=== PATIENT | female | born 1940 | race Caucasian/White ===

== ENCOUNTER 2016-05-09 15:39 | Emergency (ER) | payer OTHER ==
--- NOTE | 2016-05-09 15:54 | CPEKG ---
Heart Rate: 86 RR Interval: 698 P-R Interval: 152 QRSD Interval: 82 QT Interval: 372 QTC Interval: 445 P [place]: 49 QRS [place]: -10 T Wave [place]: 27 EKG Severity - NORMAL ECG - EKG Impression: SINUS RHYTHM Electronically Signed By: Chavo Cool 09-May-2016 20:42:19
[2016-05-09] MEDS ORDERED: NS 1,000 ML IV ONE (15:55)
[2016-05-09] MEDS ORDERED: MAALOX/LIDO/HYOSC GI COCKTAIL 55 ML BOTTLE PO ONE (15:57)
[2016-05-09 16:08] LABS: % IMMATURE GRANULYOCYTES 0.3 % (0.0-1.1); ABSOLUTE IMMATURE GRANULOCYTES 0.02 10^3/uL (0.00-0.10); ADD DIFF? NO; ADD MORPH? NO; ADD SCAN? NO; ATYPICAL LYMPHOCYTE FLAG 0 (0-99); FRAGMENT RBC FLAG 0 (0-99); HEMOGLOBIN 10.9 g/dL (12.6-16.3); LEFT SHIFT FLG 0 (0-99); LIPEMIA HEMOLYSIS FLAG 80 (0-99); MEAN CELL HEMOGLOBIN 28.5 pg (27.9-34.1); MEAN CELL VOLUME 86.4 fL (81.5-99.8); MEAN PLATELET VOLUME 10.2 fL (8.7-11.7); PLATELET CLUMPS FLAG 0 (0-99); PLATELET COUNT 244 10^3/uL (150-400); RED BLOOD CELL COUNT 3.82 10^6/uL (4.18-5.33); RED CELL DISTRIBUTION WIDTH 12.6 % (11.5-15.2)
--- NOTE | 2016-05-09 16:09 | EDPHY ---
H & P Stated Complaint: EPIGASTRIC PAIN X 1 WK Source: Patient, Family Exam Limitations: No limitations - Personal History Current Tetanus/Diphtheria Vaccine: Yes Current Tetanus Diphtheria and Acellular Pertussis (TDAP): Unsure Tetanus Vaccine Date: 2010 - Medical/Surgical History Hx Asthma: No Hx Chronic Respiratory Disease: No Hx Diabetes: Yes Hx Cardiac Disease: No Hx Renal Disease: No Hx Cirrhosis: No Hx Alcoholism: No Hx HIV/AIDS: No Hx Splenectomy or Spleen Trauma: No Other PMH: DM,HTN,CHOLESTEROL,HYPOTHYROID - Social History Smoking Status: Never smoked HPI/ROS: CHIEF COMPLAINT: Epigastric and left upper quadrant abdominal pain HISTORY OF PRESENT ILLNESS: complains of nearly 1 month of epigastric and left upper quadrant abdominal pain that has significantly worsened over the past 2 days. Mild to moderate pain that become after eating. No fever or chills. There is nausea but no vomiting. No constipation or diarrhea. No chest pain. No pain with exertion. No diaphoresis. No radiating pain. Significantly worsen postprandial. Improves when NPO at rest. Has a history of a right renal mass with a nephrectomy scheduled for June 09. No other abdominal diagnoses. Cholecystectomy remotely. No other associated complaints or modifying factors. PREVIOUS ABDOMINAL SURGERIES/DIAGNOSES: cholecystectomy remotely, right renal mass with scheduled nephrectomy NPO: Lunch today REVIEW OF SYSTEMS: Ten systems reviewed and are negative unless otherwise noted in the HPI EXAMINATION: General Appearance: Alert, no distress Head: normocephalic, atraumatic Eyes: Pupils equal and round, no conjunctival pallor or injection ENT, Mouth: Mucous membranes moist . Uvula midline. Neck: Normal inspection, supple, non-tender Respiratory: Lungs are clear to auscultation . No wheezing, rhonchi or crackles. Cardiovascular: Regular rate and rhythm . No murmur Gastrointestinal: Abdomen is soft with moderate epigastric and left upper quadrant tenderness. No CVA tenderness. No tympany. No rigidity. Non-acute abdomen. Neurological: A&O, nonfocal, normal gait Skin: Warm and dry, no rash Extremities: Nontender, no pedal edema Psychiatric: Mood and affect normal DIFFERENTIAL DIAGNOSES: Including but not limited to Gastritis, pancreatitis, enteritis, colitis, peptic ulcer MDM: 4:00 p.m. epigastric and left upper quadrant abdominal pain. The patient has reproducible pain on examination. She has no chest pain. The pain has been present for several weeks and has worsened over the past 2 days. Status post cholecystectomy. Right renal mass with scheduled nephrectomy on June 09. She does have a CT scan of the chest ordered next week to rule out any metastases. She has no chest pain , hemoptysis or shortness of breath. No acute distress and resting comfortably at this time. 4:45 p.m. I have discussed the case with Dr. Cool. At this time he will assume care of the patient. Please see his note for final disposition. CT scans have been ordered but not yet performed. ED EKG: Reviewed by Dr. Cool NSR SUPERVISION: Patient was evaluated in conjunction with the supervising physician. Please see their note for details. (James Campbell) Constitutional: Initial Vital Signs Temperature (C) 36.9 C 05/09/16 15:45 Heart Rate 98 05/09/16 15:45 Respiratory Rate 18 05/09/16 15:45 Blood Pressure 147/101 H 05/09/16 15:45 O2 Sat (%) 97 05/09/16 15:45 O2 Delivery Mode Room Air Allergies/Adverse Reactions: meloxicam [From Mobic] Allergy (Verified 10/06/14 07:26) sitagliptin phosphate [From Januvia] Allergy (Verified 10/06/14 07:21) Home Medications: Medication Instructions Recorded Glimepiride Unk Dose 05/09/16 Lisinopril Unk Dose 05/09/16 Metformin Unk Dose 05/09/16 Pantoprazole Sodium [Protonix 40mg 40 mg PO DAILY #30 tab 05/09/16 (*)] Synthroid Unk Dose 05/09/16 Medical Decision Making - Diagnostics Imaging: CT abdomen pelvis with IV contrast: No explanation for left upper quadrant pain noted, chronic renal cell carcinoma noted, CT chest: Negative for acute abnormality. Study results reported to me by Dr. Je Lockwood. (Chavo Cool) Other Provider: I evaluated and participated in the management of the patient. I also evaluated the patient independently. My co-signature indicates that I have reviewed this chart and I agree with the findings and plan of care as documented. My personal H&P findings include: The patient presents to the ED with a nearly 1 month history of chronic worsening left upper quadrant pain. The patient has been using an acid is without improvement. She has had no fever cough. The patient was seen by Gastroenterology several months ago and started on antacid without improvement. The patient has had upper endoscopy approximately 1 year ago which she is uncertain of the results of. PHYSICAL EXAM: General Appearance: Alert, no distress Eyes: Pupils equal and round no pallor or injection ENT, Mouth: Mucous membranes moist Respiratory: There are no retractions, lungs are clear to auscultation Cardiovascular: Regular rate and rhythm Gastrointestinal: Minimal tenderness to palpation in the upper quadrant Neurological: A&O, normal motor function, normal sensory exam, normal cranial nerves Skin: Warm and dry, no rashes Musculoskeletal: Neck is supple nontender Extremities: symmetrical, full range of motion At this point time the etiology of the patient's chronic upper abdominal pain is uncertain. She has nothing to suggest an acute abdomen. Her CT scan laboratory studies are reassuring. The patient will be started on Protonix and asked to follow up with her regular senior construction project manager as scheduled. She will be discharged home with customary aftercare instructions. (Chavo Cool) - Data Points Laboratory Results: Laboratory Results 05/09/16 15:53 05/09/16 15:53 05/09/16 05/09/16 17:55 15:53 WBC 7.86 10^3/uL (3.80-9.50) RBC 3.82 L 10^6/uL (4.18-5.33) Hgb 10.9 L g/dL (12.6-16.3) Hct 33.0 L % (38.0-47.0) MCV 86.4 fL (81.5-99.8) MCH 28.5 pg (27.9-34.1) MCHC 33.0 g/dL (32.4-36.7) RDW 12.6 % (11.5-15.2) Plt Count 244 10^3/uL (150-400) MPV 10.2 fL (8.7-11.7) Neut % (Auto) 68.8 % (39.3-74.2) Lymph % (Auto) 22.9 % (15.0-45.0) Gove % (Auto) 5.7 % (4.5-13.0) Eos % (Auto) 1.9 % (0.6-7.6) Baso % (Auto) 0.4 % (0.3-1.7) Nucleat RBC Rel Count 0.0 % (0.0-0.2) Absolute Neuts (auto) 5.41 10^3/uL (1.70-6.50) Absolute Lymphs (auto) 1.80 10^3/uL (1.00-3.00) Absolute Monos (auto) 0.45 10^3/uL (0.30-0.80) Absolute Eos (auto) 0.15 10^3/uL (0.03-0.40) Absolute Basos (auto) 0.03 10^3/uL (0.02-0.10) Absolute Nucleated RBC 0.00 10^3/uL (0-0.01) Immature Gran % 0.3 % (0.0-1.1) Immature Gran # 0.02 10^3/uL (0.00-0.10) PT 12.9 SEC (12.0-15.0) INR 0.98 (0.83-1.16) APTT 28.3 SEC (23.0-38.0) Sodium 140 mEq/L (134-144) Potassium 4.4 mEq/L (3.5-5.2) Chloride 108 mEq/L (97-110) Carbon Dioxide 22 mEq/l (22-31) Anion Gap 10 mEq/L (8-16) BUN 21 mg/dL (7-23) Creatinine 0.9 mg/dL (0.6-1.0) Estimated GFR > 60 Glucose 101 H mg/dL (70-100) Calcium 9.6 mg/dL (8.5-10.4) Total Bilirubin 0.5 mg/dL (0.1-1.4) Conjugated Bilirubin 0.2 mg/dL (0.0-0.5) Unconjugated Bilirubin 0.3 mg/dL (0.0-1.1) AST 30 IU/L (14-46) ALT 45 IU/L (9-52) Alkaline Phosphatase 140 H IU/L (38-126) Troponin I < 0.012 ng/mL (0-0.034) Total Protein 7.0 g/dL (6.3-8.2) Albumin 4.0 g/dL (3.5-5.0) Lipase 299.0 IU/L (23-300) Urine Color PALE YELLOW Urine Appearance CLEAR Urine pH 5.0 (5.0-7.5) Ur Specific [place] 1.021 (1.002-1.030) Urine Protein NEGATIVE (NEGATIVE) Urine Ketones NEGATIVE (NEGATIVE) Urine Blood NEGATIVE (NEGATIVE) Urine Nitrate NEGATIVE (NEGATIVE) Urine Bilirubin NEGATIVE (NEGATIVE) Urine Urobilinogen NEGATIVE EU (0.2-1.0) Ur Leukocyte Esterase NEGATIVE (NEGATIVE) Ur Culture Indicated? NOT INDICATED (NI) Urine Glucose NEGATIVE (NEGATIVE) Medications Given: Discontinued Medications Sodium Chloride (Ns) 1,000 mls @ 0 mls/hr IV ONCE ONE PRN Reason: Wide Open Stop: 05/09/16 15:56 Last Admin: 05/09/16 16:00 Dose: 1,000 mls Miscellaneous Medication (Gi Cocktail) 55 ml PO EDNOW ONE Stop: 05/09/16 15:58 Last Admin: 05/09/16 16:00 Dose: 55 ml Departure - Departure Disposition: Home, Routine, Self-Care Clinical Impression: Renal mass Abdominal pain Qualifiers: Abdominal location: upper abdomen, unspecified Qualifier Code: (R10.10) Upper abdominal pain, unspecified Condition: Good Instructions: Acute Abdominal Pain (ED) Additional Instructions: 1. Sometimes we are unable to diagnose an obvious cause of abdominal pain in the Emergency Department. Based upon our evaluation today, we see no obvious explanation for your pain. Because more serious conditions can be difficult to diagnose early in the course of their presentation, we ask that you return to the Emergency Department in 8-12 hours for a recheck if you are still having pain. This is necessary to exclude the development of a more serious condition such as appendicitis or other intra-abdominal emergency. In the event your pain markedly increases before that time or you develop intractable vomiting or fever return to the Emergency Department immediately. 2. Please follow-up with your senior construction project manager as scheduled. 3. Begin medications as prescribed in the emergency department. Referrals: Alicja Guzman MD [Primary Care Provider] - As per Instructions
[2016-05-09 16:17] LABS: APTT 28.3 SEC (23.0-38.0); INR 0.98 (0.83-1.16); PROTIME(PATIENT) 12.9 SEC (12.0-15.0)
[2016-05-09 16:21] LABS: ALANINE AMINOTRANSFERASE 45 IU/L (9-52); ALKALINE PHOSPHATASE 140 IU/L (38-126); ANION GAP 10 mEq/L (8-16); ASPARTATE AMINOTRANSFERASE 30 IU/L (14-46); BILIRUBIN,TOTAL 0.5 mg/dL (0.1-1.4); BILIRUBIN-CONJUGATED 0.2 mg/dL (0.0-0.5); BILIRUBIN-UNCONJUGATED 0.3 mg/dL (0.0-1.1); CALCIUM 9.6 mg/dL (8.5-10.4); CARBON DIOXIDE 22 mEq/l (22-31); CHLORIDE 108 mEq/L (97-110); CREATININE 0.9 mg/dL (0.6-1.0); GLOMERULAR FILTRATION RATE > 60; GLUCOSE 101 mg/dL (70-100); POTASSIUM 4.4 mEq/L (3.5-5.2); SODIUM 140 mEq/L (134-144)
[2016-05-09 16:31] LABS: TROPONIN I < 0.012 ng/mL (0-0.034)
[2016-05-09] MEDS ORDERED: IOPAMIDOL (ISOVUE-300) 100 ML BTL IV ONE (16:38)
--- NOTE | 2016-05-09 16:50 | DX ---
Portable AP Upright Chest History: Chest and epigastric pain. Comparison to the prior PA and lateral chest December 13, 2013. Findings: The heart and mediastinum are normal. Pulmonary vascularity is normal. The lungs are clear. Mild peribronchial thickening is noted. There is no pleural fluid. Stable minimal elevation of the r ight diaphragm is noted. Degenerative changes are seen in the spine. A pneumothorax is not identified . Impression: Chest negative for acute abnormality. Query airways disease.
[2016-05-09 18:19] LABS: COLOR PALE YELLOW; LEUKOCYTE ESTERASE,URINE NEGATIVE (NEGATIVE); NITRITE,URINE NEGATIVE (NEGATIVE)
[2016-05-09 18:54] VITALS: BP 146/68; PULSE 79; RESP 16; TEMP 98.1; O2SAT 97
--- NOTE | 2016-05-09 18:54 | CT ---
Contrast CT Scan of the Chest, Abdomen, and Pelvis Clinical History: 75-year-old female with a known right renal mass anticipating a nephrectomy on 2016, who presents to the ED complaining of epigastric and left upper quadrant abdominal pain, a t times postprandial. Her abdominal symptoms have been ongoing for one month, although significantly worsened over the last two days. The patient was also scheduled for CT imaging of the chest next we ek to rule out metastatic disease. Technique: Oral contrast was not administered. The patient received 90 mL of IV Isovue-300, without complication, and a multidetector helical CT scan was obtained during the arterial phase, from the b ase of the neck inferiorly to the upper abdomen, and then during the portal venous phase from the lev el of the lung bases inferiorly through the proximal femora. Images are reformatted at 5.00 and 1.25 mm increments, and are reviewed at a variety of window and level settings. Parasagittal and paracor onal reconstructed images are reviewed on the workstation. A dose reduction protocol was used. Comparison Studies: Chest radiography from earlier this afternoon, and dated December 13, 2013. No cross-sectional imaging studies are available currently. Findings CONTRAST-ENHANCED CT SCAN OF THE CHEST: There is a 3-mm noncalcified pulmonary nodule in the right l ateral apex on series #3, image #39. This is a likely benign finding, and follow-up CT imaging in 12 months is suggested. There is no focal alveolar consolidation, atelectasis, or pleural effusion. T he thyroid gland is diminutive. The supraclavicular fossa is unremarkable. There is no axillary or intrathoracic adenopathy. The cardiac chambers, pericardium, thoracic aortic contour, and the centra l pulmonary artery segments are normal. The osseous structures are age-appropriate, with no osteolyt ic lesion. There are some degenerative features of the spine. The subcutaneous tissues are normal. The breasts are adipose-replaced, with an anticipated "type A" density. Impression: Likely benign 3-mm noncalcified pulmonary nodule in the right apex. Repeat CT imaging i n 12 months is recommended to assure stability. CONTRAST-ENHANCED CT SCAN OF THE ABDOMEN: There is mild global diminished attenuation of the liver, consistent with steatosis. There is no focal hepatic mass. There is a "catwalk" appearance to the l eft hepatic lobe, a normal variant. The gallbladder is surgically absent. The pancreatic contour is normal. The adrenal glands and left kidney are normal. There is a heterogeneous-appearing exophyti c mass extending from the kgz-jw-dtlaw pole portions of the right kidney, maximally measuring 7.0 x 6 .3 cm (transverse diameter) x 7.1 cm (cephalocaudal diameter), consistent with a renal cell carcinoma . A few scattered calcifications are present. There is no obstructive uropathy. The renal veins re main patent. The splenic vein, superior mesenteric vein, and the main portal vein are also patent. The abdominal aorta and the IVC are normal in caliber. There is a 7 mm benign-appearing aortocaval l ymph node, with a tiny fatty hilum, on series 4, image 327, and a 6 mm lymph node seen on series 4, i mage 368. The stomach, small bowel, and the large bowel are not distended. There is some intralumin al fluid seen within small and large bowel. There is no ascites or pneumoperitoneum. Moderate subcu taneous and centripetal obesity is present. There is a tiny fat-containing periumbilical hernia. CONTRAST-ENHANCED CT SCAN OF THE PELVIS: The urinary bladder is moderately distended. The uterus is seen to the right of midline. There is no adnexal mass, nor is there any free fluid or adenopathy. A few scattered sigmoid colon diverticula are seen, without active diverticulitis. There are some d egenerative changes of the lower lumbar spine, with trace L4-L5 anterolisthesis and a Schmorl's node seen along the superior cortical endplate of L5. There is no osteolytic lesion. Facet hypertrophy a t the lumbosacral junction is observed. There is some degenerative change of the SI joints. Impression: 1. Mild generalized hepatic steatosis. 2. Status post cholecystectomy, with no abnormal bowel dilatation. 3. There is a heterogeneous irregularly-marginated 6.3 x 7.0 x 7.1 cm exophytic mass involving the m id-to-lower pole of the right kidney, consistent with a renal cell carcinoma. 4. There is some nonspecific intraluminal fluid seen within the stomach, small bowel, and large rochelle l, with no mechanical obstruction or pneumoperitoneum. 5. Sigmoid colon diverticulosis, without active inflammation. Results were discussed with Dr. Chavo Cool. A test result has been communicated to a licensed care provider and documented in the [employer] Critical Result system on 05/09/2016 18:18, Message ID [id number].
== END 2016-05-09 18:57 | disposition home or self-care (01) ==
DX: N28.89 Other specified disorders of kidney and ureter (principal); E11.9 Type 2 diabetes mellitus without complications; I10 Essential (primary) hypertension; R10.10 Upper abdominal pain, unspecified; Z90.49 Acquired absence of other specified parts of digestive tract
CPT/HCPCS: 71010; 71260; 74177; 93005; 96360; 99285; Q9967

== ENCOUNTER 2016-06-09 05:49 | Inpatient (IN) | payer OTHER ==
[2016-06-09] MEDS ORDERED: cefOXitin SODIUM 2 GM in D5W 100 ML IV ONE (06:00)
[2016-06-09] MEDS ORDERED: LIDOCAINE 1% 2 ML INJ ONE (06:13)
[2016-06-09] MEDS ORDERED: PROPOFOL/EMULSION 500 MG/50 ML BOTTLE IV ONE (06:57)
[2016-06-09] MEDS ORDERED: fentaNYL 250 MCG/5 ML INJ ONE (06:57)
[2016-06-09] MEDS ORDERED: SKIN ADHESIVE (DERMABOND) 1 EACH TP ONE (07:05)
[2016-06-09] MEDS ORDERED: SURGIFLO MATRIX KIT WITH THROMBIN TP ONE (07:05)
[2016-06-09] MEDS ORDERED: BUPIVACAINE/EPI 0.5% 30 ML SDV ONE ×2 (07:05→07:07)
[2016-06-09] MEDS ORDERED: FAMOTIDINE 20 MG/2 ML SDV ONE (07:12)
[2016-06-09] MEDS ORDERED: MIDAZOLAM 2 MG/2 ML VIAL ONE (07:17)
[2016-06-09] MEDS ORDERED: ONDANSETRON 4 MG/2 ML VIAL ONE ×2 (07:18→11:46)
[2016-06-09] MEDS ORDERED: DEXAMETHASONE 4 MG/ML VIAL ONE (07:18)
[2016-06-09] MEDS ORDERED: ROCURONIUM 50 MG/5 ML VIAL ONE (07:18)
[2016-06-09] MEDS ORDERED: FAMOTIDINE 20 MG/NACL 50 ML IV ONE (07:30)
[2016-06-09] MEDS ORDERED: PROPOFOL 200 MG/20 ML VIAL ONE (09:39)
[2016-06-09] MEDS ORDERED: PHENYLEPHRINE HCL 100 MCG/ML SYR ONE (10:16)
--- NOTE | 2016-06-09 11:32 | POSTOPPROG ---
Post Op Note Date of Operation: 06/09/16 Surgeon: Jess Reynoos (#[id number] & #[id number]) Recycle Worker: Wai King Anesthesia: GET(General Endotracheal) Pre-op Diagnosis: Right renal mass Post-op Diagnosis: 1. Right renal mass 2. Severe intra-abdominal adhesions Procedure: 1. Extenseive Lap. adhesiolysis 2. Robotic right radical nephrectomy Findings: See op note Inf/Abcess present in the surg proc area at time of surgery?: No EBL: 50-100 (80 cc) Complications: None Specimen(s): Right kidney & proximal ureter
[2016-06-09] MEDS ORDERED: ONDANSETRON 4 MG/2 ML VIAL IVP PRN (11:37)
[2016-06-09] MEDS ORDERED: fentaNYL 100 MCG/2 ML INJ ONE ×2 (11:45→12:11)
[2016-06-09] MEDS ORDERED: PROMETHAZINE HCL 25 MG/ML INJ ONE (11:56)
[2016-06-09] MEDS ORDERED: HYDROmorphONE/DILAUDID 1 MG/ML SYR ONE (11:56)
[2016-06-09 12:17] LABS: HEMATOCRIT 28.7 % (38.0-47.0); HEMOGLOBIN 9.6 g/dL (12.6-16.3); MEAN CELL HEMOGLOBIN 29.7 pg (27.9-34.1); MEAN CELL HEMOGLOBIN CONCENTR. 33.4 g/dL (32.4-36.7); MEAN CELL VOLUME 88.9 fL (81.5-99.8); RED BLOOD CELL COUNT 3.23 10^6/uL (4.18-5.33); RED CELL DISTRIBUTION WIDTH 12.4 % (11.5-15.2)
[2016-06-09 12:32] LABS: ANION GAP 10 mEq/L (8-16); CALCIUM 8.7 mg/dL (8.5-10.4); CARBON DIOXIDE 21 mEq/l (22-31); CHLORIDE 107 mEq/L (97-110); CREATININE 1.1 mg/dL (0.6-1.0); GLOMERULAR FILTRATION RATE 49; GLUCOSE 228 mg/dL (70-100); SODIUM 138 mEq/L (134-144)
[2016-06-09] MEDS: INSULIN REGULAR HUMAN 100 UNIT/ML SC SCH ×3 (14:44→22:40)
[2016-06-09] MEDS: cefOXitin SODIUM 2 GM in D5W 100 ML IV SCH ×2 (14:59→22:04)
[2016-06-09] MEDS ORDERED: NALOXONE HCL 0.4 MG/ML INJ IVP PRN (15:14)
[2016-06-09] MEDS: 1/2 NS 1,000 ML IV SCH (15:31)
[2016-06-09] MEDS: HYDROmorphONE/DILAUDID 6 MG/30 ML PCA IV PRN (15:31)
--- NOTE | 2016-06-09 17:08 | GOP ---
[f rep st] OPERATIVE REPORT DATE OF OPERATION: 06/09/2016 SURGEON: Jess Reynoso MD MATERIAL REQUIREMENTS WORKER: Wai King MD ANESTHESIA: General endotracheal. PREOPERATIVE DIAGNOSIS: Abnormal right renal mass. POSTOPERATIVE DIAGNOSIS: 1. Extensive postoperative intra-abdominal adhesions. 2. Abnormal right renal mass. PROCEDURE PERFORMED: 1. Extensive laparoscopic abdominal adhesiolysis. 2. Robotic-assisted laparoscopic right radical nephrectomy and partial ureterectomy. FINDINGS: 1. Extensive, severe post-cholecystectomy intra-abdominal adhesions, dealt with laparoscopically as noted above. 2. Grossly specimen-confined right renal mass. SPECIMENS: Right kidney and proximal ureter. ESTIMATED BLOOD LOSS: Approximately 80 ml. INDICATIONS: This woman was recently found to have an incidental abnormal enhancing right renal mass which is worrisome for malignancy. The mass was deemed to be too large to allow for partial nephrectomy. Therefore, the patient presents for operative radical nephrectomy at this time. The indications for the procedures as well as potential risks and complications were discussed with the patient preoperatively. She appeared to understand, her questions were answered, and she wished to proceed. Written informed surgical consent was thereafter obtained. DESCRIPTION OF PROCEDURE: The patient was brought to the operating room and administered a general endotracheal anesthesia. An orogastric tube was placed by Anesthesia and removed it at the conclusion of the case. A Swift catheter was placed to gravity drainage. The patient was then placed across the break of the table, and the table was flexed to approximately 20 degrees. A triangular pad was used to prop up the patient's right side, approximately 45 degrees. The patient's left leg was flexed at the knee and the right leg was kept straight over it, with pillows in between them for appropriate padding purposes. In fact , all appropriate pressure points were padded thoroughly as necessary. The left arm was kept abducted less than 90 degrees on an arm board, while the right arm was kept in a neutral position along the right side in a foam trough. Several strips of wide tape were then used to secure the patient to the operating room bed from head to toe. The table was then tilted in a maximum position, right and left, and patient stability on the table was confirmed at this point. The abdomen was then sterilely prepped and draped in standard fashion utilizing Ioban. Due to the patient's prior open cholecystectomy and the large associated scar with this, I decided to obtain intra-abdominal access in the lower midline. The Veress needle was used to attempt to obtain access just to the right of midline and below the umbilicus, taking the patient's large pannus out of play. However , I had difficulty inserting the Veress needle into the intra-abdominal cavity when I attempted to insufflate. I decided to make a slightly larger incision and visually palpate the anterior rectus sheath. I then inserted the Veress needle through this, created a dissection, and was able to insufflate the abdomen to 15 mmHg, which was the intra-abdominal pressure maintained throughout the majority of the case. A 12 mm laparoscopic port was placed at this location and the robotic camera was used to confirm proper intra-abdominal access. This was to be used as the malt specifications control assistant port during the case. It was later switched to a 15 mm port in order to allow for removal of the specimen within the laparoscopic bag. The abdomen was carefully inspected and there was an extensive amount of adhesions noted in the right upper quadrant, extending to the midline, involving the falciform ligament and the length of the abdomen extending down to the umbilicus. It took a great amount of care and time to perform adhesiolysis in order to allow for completion of the procedure in the laparoscopic robotically-assisted fashion. I then placed my remaining ports which were as follows: A 12 mm camera port to the right of midline and approximately intermediate between the xiphoid process and the umbilicus; an 8 mm robotic port in the right upper quadrant, just below the costal margin; and another 8 mm robotic port in the right lower quadrant. The angle created between the two 8 mm robotic ports and the laparoscopic camera port was approximately 100 degrees. In order to further assist with laparoscopic adhesiolysis, an additional 8 mm robotic port was placed in the extreme lateral position in the right upper quadrant, extending almost straight longitudinal from the camera port. Cold and hot laparoscopic scissors were used to take down the adhesions carefully while taking care to ensure that no bowel was injured during the adhesiolysis. I was ultimately able to dissect all of the adhesions free in order to allow for a continuation of the robotic portion of the procedure. At this point, the patient was placed in a right flank up position, approximately 90 degrees, and the robot was docked perpendicular to the operating room table while keeping the robotic port arm in a straight line with the laparoscopic camera port. The robotic ports were secured to the appropriate ports. The 12 mm 0 degree robotic camera was used throughout the remainder of the case. I then left the patient's bedside and entered the robotic surgeon's console. I then began the nephrectomy by initially mobilizing the colon off the right lateral abdominal wall carefully with cold scissors dissection. The colon was mobilized medially until the vena cava and duodenum overlying the renal hilum could be visualized. The duodenum was carefully kocherized in a medial fashion with cold scissors dissection to allow for better visualization of the vena cava in the vicinity of the renal hilum. I carefully released the colonic hepatic flexure from the liver with sharp and warm scissors dissection. This region was extensively scarred as well due to the patient's prior open cholecystectomy. I then released the liver from the peritoneal attachments above the kidney, including the triangular ligament securing the liver to the lateral abdominal wall. This allowed for a better freedom and mobility of the liver, but a specific liver retractor was not necessary during the case. I then turned my attention to an inferior dissection. I was able to ultimately identify the gonadal vessels medially. These vessels were swept medially and left out of harm's way for the present time. The ureter was then identified. I dissected deep to the ureter until the right-sided psoas fascia could be seen. All the tissue above the psoas fascia was pulled anteriorly in order to allow for posterior dissection of the kidney with the surrounding perirenal fat and Gerota's fascia. Along the medial aspect of this dissection, I was ultimately able to identify the renal vein. In order to gain better exposure to the renal vascular hilum, I did ultimately ligate the gonadal vessels near their connection to the vena cava with a series of Hem-o-bakari clips and divided it with scissors. I was then able to create a window above and below the renal hilum in order to allow for placement of a 60 mm linear vascular stapler across the hilum. This resulted in nice hemostatic ligation of the hilum. I then continued my dissection further cephalad while staying medial. There was a fair amount of scarring between the superior aspect of the kidney and the liver, again likely as a result of the patient's prior cholecystectomy. The linear vascular stapler was also used to help ligate any remaining superomedial attachments. The adrenal gland was spared. The perineum underneath the liver was carefully dissected free from the underlying Gerota's fascia and perirenal fat. The remaining attachments between the renal unit and the lateral abdominal wall were taken down sharply with monopolar scissors dissection. The ureter distal to the renal unit was ligated with the linear vascular stapler. Any remaining attachments between the tissue surrounding the renal unit were then dissected free and the kidney was completely mobile and dissected free at this point. There was no obvious evidence of an extrarenal malignant process. With the intra-abdominal pressure turned down to 5 mmHg temporarily, the hilum was examined carefully and hemostasis was present. In fact, along the length of the vena cava down to the bifurcation, hemostasis appeared to be present. The liver was inspected and noted to be unharmed. There was no obvious injury to any bowel structures. After the pressure had been increased back to 15 mmHg, the kidney and proximal ureter were placed in a 15 mm specimen bag once the malt specifications control assistant port had been exchanged for a 15 mm diameter port at this location. This completed the robotic portion of the procedure. I then returned to the patient's bedside and was able to reapproximate the anterior rectus fascia at this site of the 12 mm camera port with an 0 Vicryl suture and the fascial closure device. The infraumbilical incision was then extended with a scalpel and subcutaneously with electrocautery in order to allow for delivery of the specimen bag containing the kidney and proximal ureter. This wound was carefully inspected afterwards and meticulous hemostasis maintained with electrocautery and surgical Hem-o-bakari clips as necessary. I then injected a total of 30 cc of 0.5% Marcaine with epinephrine in all the incisions subcutaneously for pain control purposes. All the wounds were irrigated. The anterior rectus fascia along the infraumbilical incision was then reapproximated with a running 0 Vicryl suture. The skin edges were then reapproximated with a running 4-0 Monocryl suture in a subcuticular fashion, followed by the application of Dermabond. The patient was then transferred back onto her bed. She was thereafter awakened, extubated. She tolerated the procedure well overall. COMPLICATIONS: None. DISPOSITION: She was transferred to the recovery room in stable condition. She will be admitted for postoperative care. /[id number]/MODL and [id number]/MODL, 06/09/[address] [place] [address]
[2016-06-10 05:38] LABS: HEMATOCRIT 26.5 % (38.0-47.0); HEMOGLOBIN 8.7 g/dL (12.6-16.3); MEAN CELL HEMOGLOBIN 29.3 pg (27.9-34.1); MEAN CELL HEMOGLOBIN CONCENTR. 32.8 g/dL (32.4-36.7); MEAN CELL VOLUME 89.2 fL (81.5-99.8); RED BLOOD CELL COUNT 2.97 10^6/uL (4.18-5.33); RED CELL DISTRIBUTION WIDTH 12.5 % (11.5-15.2)
[2016-06-10 05:57] LABS: ANION GAP 8 mEq/L (8-16); CALCIUM 8.7 mg/dL (8.5-10.4); CARBON DIOXIDE 23 mEq/l (22-31); CHLORIDE 107 mEq/L (97-110); CREATININE 1.5 mg/dL (0.6-1.0); GLOMERULAR FILTRATION RATE 34; GLUCOSE 95 mg/dL (70-100); POTASSIUM 5.1 mEq/L (3.5-5.2); SODIUM 138 mEq/L (134-144)
[2016-06-10] MEDS: LEVOTHYROXINE 88 MCG TAB PO SCH (06:20)
[2016-06-10] MEDS: cefOXitin SODIUM 2 GM in D5W 100 ML IV SCH (06:21)
[2016-06-10] MEDS: INSULIN REGULAR HUMAN 100 UNIT/ML SC SCH ×4 (08:23→21:13)
[2016-06-10] MEDS: GLIMEPIRIDE 1 MG TAB PO SCH (08:24)
--- NOTE | 2016-06-10 09:18 | SOAPPROG ---
SOAP Progress Note Assessment/Plan: Assessment: POD 1 s/p robotic right radical nephrectomy - stable. Plan: 1. Continue postop care, ambulation, remove Swift, begin CLD 2. Monitor lower paramedian incision. 06/10/16 09:17 Subjective: Complains of abdominal pain with movement. No other complaints. Objective: Vital Signs Temp Pulse Resp BP Pulse Ox 37.1 C 78 14 104/76 95 06/10/16 08:00 06/10/16 08:00 06/10/16 08:00 06/10/16 08:00 06/10/16 08:00 Laboratory Results 06/10/16 04:30 06/10/16 04:30 06/09/16 06/10/16 06/11/16 05:59 05:59 05:59 Intake Total 2300 Output Total 2405 Balance -105 Physical Exam - Physical Exam General Appearance: alert, no apparent distress, obese Abdomen: soft (some tenderness noted without peritoneal signs; slight serosanguinous drainage noted from lower paramedian incision without evidence of cellulitis) Skin: warm/dry Extremities: non-tender, normal inspection Neuro/Psych: alert, normal mood/affect, oriented x 3 ICD10 Worksheet Patient Problems: Problems Problem Status Onset Chest pain Acute
[2016-06-10] MEDS: 1/2 NS 1,000 ML IV SCH ×2 (12:45→22:19)
[2016-06-10] MEDS: HYDROmorphONE/DILAUDID 6 MG/30 ML PCA IV PRN (12:58)
[2016-06-10] MEDS: metFORMIN HCL 500 MG TAB PO SCH (18:13)
[2016-06-10] MEDS ORDERED: LISINOPRIL 20 MG TAB PO SCH (21:00)
[2016-06-10] MEDS: ATORVASTATIN CALCIUM 10 MG TAB PO SCH (21:12)
[2016-06-10] MEDS ORDERED: ZOLPIDEM TARTRATE 5 MG TAB PO PRN ×2 (21:50→21:52)
[2016-06-11 05:02] LABS: HEMATOCRIT 24.1 % (38.0-47.0); MEAN CELL HEMOGLOBIN 29.5 pg (27.9-34.1); MEAN CELL HEMOGLOBIN CONCENTR. 33.2 g/dL (32.4-36.7); MEAN CELL VOLUME 88.9 fL (81.5-99.8); RED BLOOD CELL COUNT 2.71 10^6/uL (4.18-5.33); RED CELL DISTRIBUTION WIDTH 12.4 % (11.5-15.2)
[2016-06-11 05:20] LABS: ANION GAP 4 mEq/L (8-16); CALCIUM 8.4 mg/dL (8.5-10.4); CARBON DIOXIDE 23 mEq/l (22-31); CHLORIDE 106 mEq/L (97-110); CREATININE 1.6 mg/dL (0.6-1.0); GLOMERULAR FILTRATION RATE 32; GLUCOSE 118 mg/dL (70-100); POTASSIUM 4.9 mEq/L (3.5-5.2); SODIUM 133 mEq/L (134-144)
[2016-06-11] MEDS: LEVOTHYROXINE 88 MCG TAB PO SCH (05:30)
[2016-06-11] MEDS: INSULIN REGULAR HUMAN 100 UNIT/ML SC SCH ×4 (07:50→21:14)
[2016-06-11] MEDS: GLIMEPIRIDE 1 MG TAB PO SCH (07:52)
[2016-06-11] MEDS: OXYCODONE/APAP 5/325 TAB PO PRN ×2 (07:52→19:55)
[2016-06-11] MEDS: metFORMIN HCL 500 MG TAB PO SCH ×2 (07:52→17:17)
--- NOTE | 2016-06-11 13:19 | SOAPPROG ---
SOAP Progress Note Assessment/Plan: Assessment: pod 2 nephrectomy Plan: ambulate 06/11/16 13:18 Objective: Vital Signs Temp Pulse Resp BP Pulse Ox 37.1 C 83 16 113/72 94 06/11/16 11:33 06/11/16 11:33 06/11/16 11:33 06/11/16 11:33 06/11/16 11:33 Laboratory Results 06/11/16 04:19 06/11/16 04:19 06/10/16 06/11/16 06/12/16 05:59 05:59 06:59 Intake Total 2300 4673 Output Total 2405 675 Balance -105 3998 Physical Exam - Physical Exam Extremities: normal range of motion, non-tender ICD10 Worksheet Patient Problems: Problems Problem Status Onset Chest pain Acute
[2016-06-11 18:23] LABS: COLOR YELLOW; LEUKOCYTE ESTERASE,URINE NEGATIVE (NEGATIVE); NITRITE,URINE NEGATIVE (NEGATIVE)
[2016-06-11 18:28] LABS: BACTERIA TRACE /hpf (NONE SEEN); MUCUS TRACE /lpf (NONE-1+); RBC,URINE NONE SEEN /hpf (0-3)
[2016-06-11] MEDS: ATORVASTATIN CALCIUM 10 MG TAB PO SCH (19:56)
--- NOTE | 2016-06-11 20:20 | GCON ---
[f rep st] CONSULTATION MEDICINE CONSULTATION. DATE OF CONSULTATION: 06/11/2016 CHIEF COMPLAINT: This is a 76-year-old female with a history of diabetes who was admitted to the hospital for nephrectomy in the setting of a right renal mass. She has developed acute kidney injury postoperatively, and the medicine team was then consulted regarding blood sugar management. HISTORY OF PRESENT ILLNESS: The patient is a 76-year-old female with a history of diabetes, hypertension, hyperlipidemia, and hypothyroidism, who presented to the hospital for a nephrectomy. She was admitted by Dr. Reynoso after discovery of a right renal mass suspicious for renal cell carcinoma. She is postop day 2 from her surgery, and she has been doing well. However, her creatinine has been on the rise. Her baseline creatinine is around 0.9. Since her surgery, this has risen to 1.6. She has no other electrolyte abnormalities. No nausea or vomiting or symptoms consistent with infection. Regarding her diabetes, she normally takes metformin a gram b.i.d. daily along with glimepiride. She recently had her glimepiride dose decreased from 2 mg daily to 1 mg daily due to hypoglycemia with blood sugar in the 50s. She does not use insulin. She has been eating well postoperatively and hopes to go home tomorrow. PAST MEDICAL HISTORY: 1. Diabetes. 2. Hypertension. 3. Hyperlipidemia. 4. Hypothyroidism. 5. Obesity. 6. Renal cell carcinoma. PAST SURGICAL HISTORY: 1. Cholecystectomy. 2. Right nephrectomy postop day 2. MEDICATIONS: Please see [facility] [employer] for complete updated outpatient medication list. ALLERGIES: Citalopram, meloxicam, sitagliptin. FAMILY HISTORY: Her brother has coronary artery disease which sounds consistent with premature heart disease. SOCIAL HISTORY: The patient is . Her and daughter are at the bedside. She denies alcohol or tobacco use. REVIEW OF SYSTEMS: A 10-point review of systems was performed and is negative except as per HPI. OBJECTIVE: VITAL SIGNS: Current temperature is 37.1, blood pressure 125/80, heart rate 98, respiratory rate 16. She is 92% on room air. GENERAL: The patient is awake, alert, and oriented, no distress. HEENT: Head is atraumatic , normocephalic. Pupils equal, round, react to light. Extraocular muscles intact. Oropharynx is clear. Mucous members are moist. NECK: Supple. There is no JVD. HEART: Regular rate and rhythm without murmur. LUNGS: Clear to auscultation bilaterally. ABDOMEN: Soft, nondistended, nontender. Normoactive bowel sounds. EXTREMITIES: Without cyanosis, clubbing, or edema. NEUROLOGIC: Grossly nonfocal. LABORATORY DATA: CBC this morning reveals a white count of 10.2, hemoglobin 8, platelets 175. Sodium 133, creatinine 1.6 which is up from 0.9 preoperatively. Blood sugars have ranged from 120 to 210. 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 ASSESSMENT AND PLAN: The patient is a 76-year-old female with history of diabetes, hypertension, and hyperlipidemia, who was admitted to the hospital for nephrectomy, and she is postop day 2, and hopes to go home tomorrow. However, given her rise in creatinine, Medicine has been consulted to assist with diabetes management. 1. Acute kidney injury. Decreased renal function in the setting of nephrectomy. She is nearly 4 L net positive and her BUN is just 4, making it unlikely this is a prerenal etiology. I will go ahead and check urine sodium and urine creatinine so we can calculate a FENa for further evaluation. We will continue to trend with morning labs. It sounds like she will be referred to outpatient nephrology for consultation. 2. Diabetes mellitus type 2. The patient has recently had problems with hypoglycemia with blood sugar in the 50s, and at that point her glimepiride was reduced to 1 mg daily. Given her acute kidney injury, I recommend we hold metformin. Due to her recent hypoglycemia, I am reluctant to increase her glimepiride at this point. Therefore, we will plan to continue her on the 1 mg daily of glimepiride and she will continue her daily blood sugar checks. She will follow up with Dr. Arias, managed services sales consultant, to further discuss increasing her glimepiride dose if she has persistently elevated blood sugars. In the meantime , I will check an A1c to assess her overall control, as she may be over controlled with her recent low blood sugars. 3. Hypertension. This is well controlled on her current regimen. However, given her reduced renal function, I am going to halve her lisinopril dose to 10 mg daily. She will need close monitoring of her potassium and creatinine levels , and as above, we will recheck labs in the morning. 4. Hyperlipidemia. Continue the patient on her regular outpatient statin dose. 5. Hypothyroidism. Continue Synthroid. 6. Renal cell carcinoma, status post right nephrectomy, postop day 2. This diagnosis is confirmed on a pathology specimen. We will defer followup plans and referrals to her primary urologist, as the patient will likely be discharged tomorrow, and she can be referred to the [facility] per Dr. Reynoso. 7. DVT prophylaxis. The patient has not been receiving Lovenox, though she does have SCDs ordered. She is ambulatory. We will defer any further prophylaxis to surgery team. CODE STATUS: Patient is full code. DISPOSITION: The patient is currently inpatient and may be a candidate for discharge in the morning per her urologist. /[id number]/MODL MTDD
[2016-06-11] MEDS ORDERED: LISINOPRIL 10 MG TAB PO SCH (21:00)
[2016-06-12] MEDS: LEVOTHYROXINE 88 MCG TAB PO SCH (05:17)
[2016-06-12 05:40] LABS: ANION GAP 5 mEq/L (8-16); CALCIUM 8.5 mg/dL (8.5-10.4); CARBON DIOXIDE 24 mEq/l (22-31); CHLORIDE 109 mEq/L (97-110); CREATININE 1.5 mg/dL (0.6-1.0); GLOMERULAR FILTRATION RATE 34; GLUCOSE 87 mg/dL (70-100); POTASSIUM 4.5 mEq/L (3.5-5.2); SODIUM 138 mEq/L (134-144)
[2016-06-12 08:02] VITALS: PULSE 88; TEMP 98.2
[2016-06-12] MEDS: INSULIN REGULAR HUMAN 100 UNIT/ML SC SCH ×2 (08:07→11:56)
[2016-06-12] MEDS: GLIMEPIRIDE 1 MG TAB PO SCH (08:07)
--- NOTE | 2016-06-12 10:46 | HOSPPROG ---
Hospitalist Progress Note Assessment/Plan: 76-year-old with diabetes and hypertension who was admitted for nephrectomy, postop he had mild elevation of her creatinine which has since stabilized. I suspect this is due to the surgery as well as ongoing All inhibitor use postop. # acute on chronic renal insufficiency postop nephrectomy, creatinine stabilized today * Hold lisinopril until creatinine is improved and blood pressure improved as well * Patient will follow up with Dr. Guzman this week she will recheck the creatinine and resume lisinopril if she is back to baseline * Referral to Nephrology as an outpatient if her creatinine remains elevated. Or per Dr. Reynoso # hypertension. Currently hypotensive, will hold lisinopril until blood pressure improves and creatinine improves. # diabetes. Followed by Dr. Arias will hold Glucophage for a few days postop and she can resume this later this week if she is feeling better and eating normally and staying hydrated # dyslipidemia # Renal Cell carcinoma, s/p nephrectomy. Likely cure, follow up with Dr. Reynoso, further eval by Oncology per Dr. Reynoso if needed. OK for DC from medicine standpoint Subjective: No complaints ready to go home Objective: Vital Signs Temp Pulse Resp BP Pulse Ox 36.8 C 88 16 109/77 97 06/12/16 08:00 06/12/16 08:00 06/12/16 08:00 06/12/16 08:00 06/12/16 08:00 Laboratory Results 06/11/16 04:19 06/12/16 05:10 06/11/16 06/12/16 06/13/16 04:59 05:59 05:59 Intake Total Output Total Balance - Physical Exam Constitutional: no apparent distress Eyes: PERRL Ears, Nose, Mouth, Throat: moist mucous membranes Cardiovascular: regular rate and rhythym Respiratory: no respiratory distress Skin: warm Neurologic: AAOx3 Psychiatric: interacting appropriately, not anxious ICD10 Worksheet Patient Problems: Problems Problem Status Onset Chest pain Acute
[2016-06-12] MEDS: OXYCODONE/APAP 5/325 TAB PO PRN (11:13)
[2016-06-12 11:32] VITALS: BP 124/63; RESP 18; O2SAT 96
--- NOTE | 2016-06-12 13:33 | SOAPPROG ---
SOAP Progress Note Assessment/Plan: Assessment: po nephrectomy Plan: dc home, follow up with PCP re HTN, and DM 06/11/16 13:18 06/12/16 13:32 06/12/16 13:32 Objective: Vital Signs Temp Pulse Resp BP Pulse Ox 36.8 C 88 18 124/63 H 96 06/12/16 11:31 06/12/16 11:31 06/12/16 11:31 06/12/16 11:31 06/12/16 11:31 Laboratory Results 06/11/16 04:19 06/12/16 05:10 06/11/16 06/12/16 06/13/16 04:59 05:59 05:59 Intake Total Output Total Balance abdomen soft, ext nontender ICD10 Worksheet Patient Problems: Problems Problem Status Onset Chest pain Acute
[2016-06-13 04:21] LABS: HEMOGLOBIN A1C 6.3 % (4.0-6.0)
== END 2016-06-12 14:19 | disposition home or self-care (01) | DRG 657 ==
LOC: F3N 05:49 → F3E 13:20
PROVIDERS: ADMIT Specialist; ATTEND Specialist
PROC: 8E0WXCZ Robotic Assisted Procedure of Trunk Region (ICD-10-PCS; principal; 2016-06-09 07:15)
PROC: 0TT04ZZ Resection of Right Kidney, Percutaneous Endoscopic Approach (ICD-10-PCS; principal; 2016-06-09 07:15)
DX: C64.1 Malignant neoplasm of right kidney, except renal pelvis (principal); N17.9 Acute kidney failure, unspecified; E11.9 Type 2 diabetes mellitus without complications; I10 Essential (primary) hypertension; E78.5 Hyperlipidemia, unspecified; E66.9 Obesity, unspecified
CPT/HCPCS: J0694; J1100; J1170; J1815; J2250; J2370; J2405; J2550; J2704; J3010

== ENCOUNTER 2016-06-13 20:04 | Emergency (ER) | payer OTHER ==
[2016-06-13 20:10] VITALS: TEMP 98.6
--- NOTE | 2016-06-13 20:30 | CPEKG ---
Heart Rate: 84 RR Interval: 714 P-R Interval: 156 QRSD Interval: 78 QT Interval: 360 QTC Interval: 426 P [place]: 48 QRS [place]: -3 T Wave [place]: 37 EKG Severity - ABNORMAL ECG - EKG Impression: SINUS RHYTHM EKG Impression: PROBABLE POSTERIOR INFARCT Electronically Signed By: Matias Wang 15-Jun-2016 12:05:44
[2016-06-13 20:39] LABS: % IMMATURE GRANULYOCYTES 0.3 % (0.0-1.1); ABSOLUTE IMMATURE GRANULOCYTES 0.03 10^3/uL (0.00-0.10); ADD DIFF? NO; ADD MORPH? NO; ADD SCAN? NO; ATYPICAL LYMPHOCYTE FLAG 0 (0-99); FRAGMENT RBC FLAG 0 (0-99); HEMATOCRIT 27.1 % (38.0-47.0); HEMOGLOBIN 9.2 g/dL (12.6-16.3); LEFT SHIFT FLG 0 (0-99); LIPEMIA HEMOLYSIS FLAG 90 (0-99); MEAN CELL HEMOGLOBIN CONCENTR. 33.9 g/dL (32.4-36.7); MEAN CELL VOLUME 85.5 fL (81.5-99.8); PLATELET CLUMPS FLAG 0 (0-99); PLATELET COUNT 297 10^3/uL (150-400); RED BLOOD CELL COUNT 3.17 10^6/uL (4.18-5.33); RED CELL DISTRIBUTION WIDTH 12.5 % (11.5-15.2)
[2016-06-13] MEDS ORDERED: ONDANSETRON 4 MG/2 ML VIAL IVP ONE (20:48)
[2016-06-13 20:58] LABS: ANION GAP 11 mEq/L (8-16); CALCIUM 9.1 mg/dL (8.5-10.4); CARBON DIOXIDE 21 mEq/l (22-31); CHLORIDE 102 mEq/L (97-110); CREATININE 1.3 mg/dL (0.6-1.0); GLOMERULAR FILTRATION RATE 40; GLUCOSE 124 mg/dL (70-100); POTASSIUM 4.1 mEq/L (3.5-5.2); SODIUM 134 mEq/L (134-144)
--- NOTE | 2016-06-13 21:08 | EDPHY ---
General - History Smoking Status: Never smoked Narrative: I evaluated and participated in the management of the patient. I also evaluated the patient independently. My co-signature indicates that I have reviewed this chart and I agree with the findings and plan of care as documented. My personal H&P findings include: 76-year-old female presenting 4 days status post right nephrectomy. She is complaining of pain in the high left upper quadrant and epigastric region and also shortness of breath. Patient reports it just feels like she can't get a full breath. Feels better when she sits up. No chest pain. No peripheral edema. No leg swelling. No history of PEs. Patient is not on any anticoagulant. No fever. On examination the patient is not hypoxic nor tachycardic. Respiratory rate is not labored. Patient has by basilar rales and crackles.. Abdomen is tender and well localized region epigastrium and just to the left. Evaluation includes chest x-ray with no acute findings, CT scan of the abdomen pelvis demonstrates no concerning postoperative findings. Patient does have significant constipation on her CT scan. Plan to admit the patient to the hospital for further evaluation of her abdominal pain as well as consideration of possible pulmonary embolism. She cannot undergo a CT scan for PE secondary to slightly elevated creatinine in this individual with 1 kidney. She was seen in the emergency department by hospitalist service, Dr Moyer. However, the patient would prefer to be discharged home. Patient certainly does have epigastric and left upper quadrant abdominal discomfort with constipation. She understands the risks of potential pulmonary embolism. She understands that she has been offered admission to the hospital but would prefer to be discharged home and follow up with the primary care physician. She is not hypoxic, not tachycardic. (Anabella Correa) CHIEF COMPLAINT: epigastric pain HISTORY OF PRESENT ILLNESS: epigastric and chest pain that started earlier today. She was at rest when this happened. It was a mild pain at 1st but now moderate to severe. Associated with some difficulty taking a full inspiration. No fever. No vomiting some nausea. 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 No fever. No chills. Minimal abdominal pain primarily associated with her incisions. No extrusion or purulence from the wounds. No back pain. No headache. No neck pain or stiffness. No over-the- counter medications have helped. No other associated complaints or modifying factors. She has not yet followed up with Nephrology regarding the pathology for this. REVIEW OF SYSTEMS: Ten systems reviewed and are negative unless otherwise noted in the HPI PERTINENT MEDICAL HISTORY: EXAMINATION General Appearance: Alert, no distress Head: normocephalic, atraumatic Eyes: Pupils equal and round, no conjunctival pallor or injection ENT, Mouth: Mucous membranes moist . Uvula midline. No erythema Neck: Normal inspection, supple, non-tender. Painless range of motion all planes. Respiratory: Lungs are clear to auscultation . No wheezing, rhonchi or crackles. Cardiovascular: Regular rate and rhythm. No murmur. Pulses intact distally. Gastrointestinal: Obese abdomen is soft. There are several laparoscopic incisions are clean, dry and intact. There is minimal tenderness in all quadrants. No tympany. No rigidity. Neurological: A&O, nonfocal, normal gait . Strength is symmetric in all limbs. Skin: Warm and dry, no rash . Surgical incisions as noted that are clean, dry and intact. Extremities: Nontender, no pedal edema Psychiatric: Mood and affect normal DIFFERENTIAL DIAGNOSES: Including but not limited to ACS, epigastric pain, acute pancreatitis, cholecystitis, cholelithiasis, pneumonia, pleurisy, pericarditis, postoperative complication MDM: 9:05 p.m. epigastric pain that started earlier today. She is postop day 4 for from a laparoscopic right nephrectomy due to mass. She has some shortness of breath with this. Her abdominal pain is minimal and she attributes to the incisions only. No fever. No vomiting but some nausea. Vital signs are stable. EKG unremarkable and remaining laboratory studies and chest x-ray are pending. Laboratory studies were relatively unremarkable. She had permissive anemia and LFTs that were unremarkable. We had 1st felt that this may have been a cardiac scenario and contact the hospitalist for admission for ACS. On repeat examination, and examination from the hospitalist she has found the patient actually is having more epigastric, reproducible abdominal pain. I repeated my history and examination on the patient this is more consistent. She is actually not have any true chest pain at this time. She feels that it is truly abdominal in nature despite not feeling so at time of arrival. She says she has an appoint with her primary care physician tomorrow would like to going to keep that. She has declined admission. Although I had originally contacted Dr. Pirota for admission, I do feel that she is stable for discharge home. The CT scan did show some fluid in the renal fossa that does not appear complex , and there is an expected amount of pneumoperitoneum. Also noted was a moderate amount of constipation. No other acute findings. Patient was discharged home in stable conditions to follow up with primary care physician the following day. I also instructed her to take MiraLax and Colace this evening to help with the constipation. she and her spouse are comfortable with that plan. SUPERVISION: Patient was evaluated in conjunction with the supervising physician. Please see their note for details. (James Campbell) - Objective Vital Signs: Initial Vital Signs Temperature (C) 98.6 F 06/13/16 20:05 Heart Rate 86 06/13/16 20:05 Respiratory Rate 16 06/13/16 20:05 Blood Pressure 173/79 H 06/13/16 20:05 O2 Sat (%) 100 06/13/16 20:05 O2 Delivery Mode Room Air Allergies/Adverse Reactions: citalopram hydrobromide [From Celexa] Allergy (Mild, Verified 06/09/16 12:01) Other-Enter Comments meloxicam [From Mobic] Allergy (Verified 06/09/16 08:07) sitagliptin phosphate [From Januvia] Allergy (Verified 10/06/14 07:21) Home Medications: Medication Instructions Recorded Atorvastatin Calcium [Lipitor 10 10 mg PO HS 05/09/16 mg (*)] Glimepiride [Amaryl 1 MG (*)] 1 mg PO DAILY 05/09/16 Levothyroxine [Synthroid 88 mcg 88 mcg PO DAILY06 05/09/16 (*)] Amoxicillin 2,000 mg PO DAILY PRN 05/10/16 Herbals/Supplements -Info Only 1 ea PO DAILY 05/10/16 Multivitamins [Multivitamin (*)] 1 each PO DAILY 05/10/16 Diazepam [Valium 5 MG (*)] 5 mg PO HS PRN 06/09/16 oxyCODONE/APAP 5/325 [Percocet 1 - 2 tab PO Q6 PRN #25 tab 06/10/16 5/325 (*)] Docusate Sodium [Colace 100 MG (*)] 100 mg PO BID #30 cap 06/13/16 Magnesium Citrate [Magnesium 300 ml PO ONCE #1 bottle 06/13/16 Citrate 300 ml (*)] Laboratory Results: Laboratory Results 06/13/16 20:29 06/13/16 20:29 Medications Given: Discontinued Medications Ondansetron HCl (Zofran) 4 mg IVP EDNOW ONE Stop: 06/13/16 20:49 Last Admin: 06/13/16 21:01 Dose: 4 mg Departure - Departure Disposition: Home, Routine, Self-Care Clinical Impression: Epigastric pain Constipation Qualifiers: Constipation type: unspecified constipation type Qualified Code(s): K59.00 - Constipation, unspecified Condition: Good Instructions: Constipation (ED) Additional Instructions: follow-up with primary care physician. MiraLax [id number] as prescribed. Colace [id number] as prescribed Referrals: Alicja Guzman MD [Primary Care Provider] - As per Instructions Prescriptions: Docusate Sodium [Colace 100 MG (*)] 100 mg PO BID #30 cap Magnesium Citrate [Magnesium Citrate 300 ml (*)] 300 ml PO ONCE #1 bottle
[2016-06-13 21:09] LABS: TROPONIN I < 0.012 ng/mL (0-0.034)
[2016-06-13 21:16] LABS: PROTIME(PATIENT) 13.1 SEC (12.0-15.0)
[2016-06-13 21:28] LABS: ALBUMIN 3.6 g/dL (3.5-5.0); BILIRUBIN,TOTAL 0.9 mg/dL (0.1-1.4); BILIRUBIN-CONJUGATED 0.3 mg/dL (0.0-0.5); BILIRUBIN-UNCONJUGATED 0.6 mg/dL (0.0-1.1); TOTAL PROTEIN 6.1 g/dL (6.3-8.2)
[2016-06-13 21:45] VITALS: RESP 20
[2016-06-13 23:08] VITALS: BP 167/62; PULSE 86; O2SAT 98
== END 2016-06-13 23:35 | disposition home or self-care (01) ==
LOC: UNDOADMOB 22:54
DX: K59.00 Constipation, unspecified (principal)
CPT/HCPCS: 71020; 74176; 93005; 96374; 99285; J2405